=== PATIENT | male | born 2000 | race Caucasian/White ===

== ENCOUNTER 2019-01-14 01:17 | Emergency (ER) | payer OTHER, MEDICAID ==
[~2019-01-14] VITALS: Ht 190.5 cm; Wt 159.2 kg
[~2019-01-14 01:17] MED LIST: ABILIFY30 MG; DEPAKOTE PO; DEPAKOTE500 MG PO; INTUNIV4 MG PO; LATUDA80 MG PO; TOPAMAX PO; TOPAMAX200 MG; ZOLOFT PO
[2019-01-14] MEDS ORDERED: SYNTHROID100 MC1 (01:23)
[2019-01-14 01:47] LABS: ABSOLUTE BASOPHILS 0.1 thou/uL (0.0-0.2); ABSOLUTE EOSINOPHILS 0.8 thou/uL (0.0-0.7); ABSOLUTE LYMPHOCYTES 3.3 thou/uL (0.8-5.3); ABSOLUTE MONOCYTES 1.6 thou/uL (0.0-1.2); ABSOLUTE NEUTROPHILS 4.9 thou/uL (1.6-8.1); BASOPHILS 0.8 %; EOSINOPHILS 7.4 %; HEMATOCRIT 41.7 % (42.0-52.0); HEMOGLOBIN 14.2 gm/dL (14.0-18.0); LYMPHOCYTES 30.9 %; MCH 29.2 pg (26.0-34.0); MCHC 34.1 g/dL (28.0-37.0); MCV 85.8 fL (80.0-100.0); MONOCYTES 14.8 %; MPV 8.8 fl. (7.2-11.1); NUCLEATED RBCS 0 /100WBC; PLATELET COUNT* 160 thou/uL (150-400); POLYS 46.1 %; RBC 4.86 mil/uL (4.50-6.00); RDW-CV 13.8 % (10.5-14.5); WBC 10.5 thou/uL (4.0-11.0)
[2019-01-14 01:53] LABS: ANION GAP 15 mmol/L (7-16); BUN 6 mg/dL (7-18); CALCIUM 8.5 mg/dL (8.5-10.1); CHLORIDE 106 mmol/L (98-107); CO2 25 mmol/L (21-32); CREATININE 0.9 mg/dL (0.6-1.3); GLUCOSE 122 mg/dL (70-99); POTASSIUM 3.3 mmol/L (3.5-5.1); SODIUM 146 mmol/L (136-145)
[2019-01-14 01:57] LABS: PROTIME 10.1 Seconds (9.20-11.50)
[2019-01-14 02:04] LABS: ALBUMIN 3.4 g/dL (3.4-5.0); ALKALINE PHOSPHATASE 94 U/L (46-116); NT-PRO BRAIN NAT PEPTIDE 51 pg/mL (<300); SGOT 23 U/L (15-37); SGPT 44 U/L (30-65); TOTAL BILIRUBIN 0.3 mg/dL (<0.1-1.0); TOTAL PROTEIN 6.6 g/dL (6.4-8.2); TROPONIN-I LEVEL <0.06 ng/mL (<0.06)
[2019-01-14 03:08] LABS: SALICYLATE < 2.8 mg/dL (2.8-20.0)
[2019-01-14 03:09] LABS: ACETAMINOPHEN < 2 ug/mL (10-30); ALCOHOL < 10 mg/dL (<10)
[2019-01-14 04:45] LABS: AMP/METHAMP Negative (Negative); BARBITURATES Negative (Negative); BENZODIAZEPINES Negative (Negative); COCAINE Negative (Negative); METHADONE Negative (Negative); OPIATES Negative (Negative); PCP Negative (Negative); THC Negative (Negative)
--- NOTE | 2019-01-14 12:23 | EKG ---
[place] [address] ELECTROCARDIOGRAM REPORT Name: TRISH MENSAH Room: [facility]#: [id number] Admission: 01/14/19 Attend Phys: Discharge: Date of : [birth year] Report #: [id number] THIS REPORT FOR: //name// [facility] ED Test Date: 2019-01-14 Test Time: 01:20:01 Pat Name: TRISH MENSAH Department: Room: Gender: Vp Site: OR : 2000 Requested By: Emma Leo Order Number: [id number] MD: Doug Garland Measurements Intervals [place] Rate: 105 P: 69 MS: 150 QRS: 55 QRSD: 94 T: 35 QT: 341 QTc: 451 Interpretive Statements Sinus tachycardia Baseline wander in lead(s) III No previous ECG available for comparison Electronically Signed On 01-14-2019 12:23:31 CDT by Doug Galrand [email or web address] <ELECTRONICALLY SIGNED> By: Doug Garland MD, [facility] 01/14/19 1223 0120 0120 Doug Garland MD, FACC /EPI
[2019-01-14] MEDS ORDERED: SYNTHROID125 MC1 PO (13:50)
[2019-01-14] MEDS ORDERED: DEPAKOTE 250MG250 M1 PO (13:50)
[2019-01-14] MEDS ORDERED: MELATONIN3 MG PO (13:51)
[2019-01-14] MEDS ORDERED: MINIPRESS2 MG PO (13:52)
[2019-01-14] MEDS ORDERED: OMEPRAZOLE20 M2 PO (13:52)
[2019-01-14] MEDS ORDERED: RISPERDAL4 M1 PO (13:54)
[2019-01-14] MEDS ORDERED: RISPERDAL 3 MG T3 M1 PO (13:54)
[2019-01-14] MEDS ORDERED: VITAMIN D250000 UNIT PO (13:55)
[2019-01-14] MEDS ORDERED: TYLENOL325 MG PO (13:56)
[2019-01-14] MEDS ORDERED: BUSPIRONE HCL10 MG PO (13:56)
[2019-01-14] MEDS ORDERED: ASPERCREME76.5 GM TOP (13:57)
[2019-01-14] MEDS ORDERED: DOK100 MG PO (13:57)
[2019-01-14] MEDS ORDERED: EPIPEN0.3 MG/0.1 IM (13:58)
[2019-01-14] MEDS ORDERED: HEMMOREX-HC25 MG RECTAL (13:59)
[2019-01-14 23:44] VITALS: BP 112/66
== END 2019-01-14 23:30 ==
LOC: M.ERS 01:17
PROVIDERS: Emergency Medicine
DX: R06.00 Dyspnea, unspecified (principal); R06.02 Shortness of breath; R45.851 Suicidal ideations; Z91.013 Allergy to seafood

== ENCOUNTER 2019-01-29 02:40 | Emergency (ER) | payer OTHER, MEDICAID ==
[~2019-01-29] VITALS: Ht 190.5 cm; Wt 159.2 kg
[~2019-01-29 02:40] MED LIST changes: +ASPERCREME76.5 GM TOP; +BUSPIRONE HCL10 MG PO; +DEPAKOTE 250MG250 M1 PO; +DOK100 MG PO; +EPIPEN0.3 MG/0.1 IM; +HEMMOREX-HC25 MG RECTAL; +MELATONIN3 MG PO; +MINIPRESS2 MG PO; +OMEPRAZOLE20 M2 PO; +RISPERDAL 3 MG T3 M1 PO; +RISPERDAL4 M1 PO; +SYNTHROID100 MC1; +SYNTHROID125 MC1 PO; +TYLENOL325 MG PO; +VITAMIN D250000 UNIT PO
[2019-01-29 04:00] VITALS: BP 130/86
== END 2019-01-29 04:00 | disposition home or self-care (01) ==
LOC: M.ERS 02:40
DX: F23 Brief psychotic disorder (principal); F31.9 Bipolar disorder, unspecified; F84.5 Asperger's syndrome; Z59.0 Homelessness; Z91.013 Allergy to seafood

== ENCOUNTER 2019-01-31 02:45 | Emergency (ER) | payer OTHER, MEDICAID ==
[~2019-01-31] VITALS: Ht 190.5 cm; Wt 159.3 kg
[2019-01-31 03:31] LABS: URINE BILIRUBIN NEGATIVE (Negative); URINE BLOOD NEGATIVE (Negative); URINE CLARITY CLEAR; URINE COLOR YELLOW; URINE GLUCOSE-RANDOM NEGATIVE (Negative); URINE KETONES NEGATIVE (Negative); URINE LEUKOCYTES NEGATIVE (Negative); URINE NITRITE NEGATIVE (Negative); URINE PROTEIN NEGATIVE (Negative); URINE SPECIFIC GRAVITY 1.015 (1.005-1.030); URINE UROBILINOGEN 0.2 E.U./dl (0.2-1.0)
[2019-01-31 03:45] LABS: AMP/METHAMP Negative (Negative); BARBITURATES Negative (Negative); BENZODIAZEPINES Negative (Negative); COCAINE Negative (Negative); METHADONE Negative (Negative); OPIATES Negative (Negative); PCP Negative (Negative); THC Negative (Negative)
[2019-01-31 06:18] VITALS: BP 132/77
== END 2019-01-31 06:18 | disposition home or self-care (01) ==
LOC: M.ERS 02:45
PROVIDERS: Personal Emergency Response Attendant
DX: R44.0 Auditory hallucinations (principal); F31.9 Bipolar disorder, unspecified; F84.5 Asperger's syndrome; Z00.00 Encounter for general adult medical examination without abnormal findings; Z91.013 Allergy to seafood

== ENCOUNTER 2019-02-22 00:07 | Emergency (ER) | payer OTHER, MEDICAID ==
[~2019-02-22] VITALS: Ht 193 cm; Wt 136.1 kg
[2019-02-22 00:40] LABS: ABSOLUTE BASOPHILS 0.1 thou/uL (0.0-0.2); ABSOLUTE EOSINOPHILS 0.3 thou/uL (0.0-0.7); ABSOLUTE LYMPHOCYTES 3.4 thou/uL (0.8-5.3); ABSOLUTE MONOCYTES 1.4 thou/uL (0.0-1.2); ABSOLUTE NEUTROPHILS 3.8 thou/uL (1.6-8.1); BASOPHILS 1.3 %; EOSINOPHILS 3.4 %; HEMOGLOBIN 14.8 gm/dL (14.0-18.0); LYMPHOCYTES 37.8 %; MCH 29.5 pg (26.0-34.0); MCHC 34.5 g/dL (28.0-37.0); MCV 85.5 fL (80.0-100.0); MONOCYTES 15.5 %; NUCLEATED RBCS 0 /100WBC; PLATELET COUNT* 192 thou/uL (150-400); RBC 5.03 mil/uL (4.50-6.00); RDW-CV 14.6 % (10.5-14.5); WBC 8.9 thou/uL (4.0-11.0)
[2019-02-22 00:50] LABS: CALCIUM 9.1 mg/dL (8.5-10.1); CREATININE 0.9 mg/dL (0.6-1.3); POTASSIUM 3.8 mmol/L (3.5-5.1)
[2019-02-22 00:55] LABS: ALBUMIN 3.8 g/dL (3.4-5.0); TOTAL BILIRUBIN 0.4 mg/dL (<0.1-1.0); TOTAL PROTEIN 7.6 g/dL (6.4-8.2)
[2019-02-22 00:56] LABS: ALCOHOL < 10 mg/dL (<10); SALICYLATE < 2.8 mg/dL (2.8-20.0)
[2019-02-22 00:57] LABS: ACETAMINOPHEN < 2 ug/mL (10-30)
[2019-02-22 01:52] LABS: URINE BILIRUBIN NEGATIVE (Negative); URINE BLOOD NEGATIVE (Negative); URINE CLARITY CLEAR; URINE COLOR YELLOW; URINE GLUCOSE-RANDOM NEGATIVE (Negative); URINE KETONES NEGATIVE (Negative); URINE LEUKOCYTES-REFLEX NEGATIVE (Negative); URINE NITRITE-REFLEX NEGATIVE (Negative); URINE PROTEIN NEGATIVE (Negative); URINE SPECIFIC GRAVITY >= 1.030 (1.005-1.030); URINE UROBILINOGEN 0.2 E.U./dl (0.2-1.0)
[2019-02-22 02:01] LABS: AMP/METHAMP Negative (Negative); BARBITURATES Negative (Negative); BENZODIAZEPINES Negative (Negative); COCAINE Negative (Negative); METHADONE Negative (Negative); OPIATES Negative (Negative); PCP Negative (Negative); THC Negative (Negative)
[2019-02-22 15:13] VITALS: BP 125/87
== END 2019-02-22 15:13 | disposition still patient (30) ==
LOC: M.ERS 00:07
PROVIDERS: Emergency Medicine Emergency Medical Services
DX: R45.851 Suicidal ideations (principal); R44.3 Hallucinations, unspecified; F31.9 Bipolar disorder, unspecified; Z91.013 Allergy to seafood; Z79.899 Other long term (current) drug therapy

== ENCOUNTER 2019-03-08 21:45 | Emergency (ER) | payer OTHER, MEDICAID ==
[~2019-03-08] VITALS: Ht 193 cm; Wt 158.8 kg
[2019-03-08] MEDS ORDERED: ZYPREXA 5 MG TAB5 M1 PO (21:57)
[2019-03-08] MEDS ORDERED: VISTARIL 25 MG25 M1 PO (21:57)
[2019-03-08] MEDS ORDERED: PROTONIX40 M1 PO (21:58)
[2019-03-08 22:40] LABS: URINE BILIRUBIN NEGATIVE (Negative); URINE BLOOD TRACE (Negative); URINE CLARITY CLEAR; URINE COLOR YELLOW; URINE GLUCOSE-RANDOM NEGATIVE (Negative); URINE KETONES NEGATIVE (Negative); URINE LEUKOCYTES-REFLEX NEGATIVE (Negative); URINE NITRITE-REFLEX NEGATIVE (Negative); URINE PROTEIN NEGATIVE (Negative); URINE SPECIFIC GRAVITY >= 1.030 (1.005-1.030); URINE UROBILINOGEN 0.2 E.U./dl (0.2-1.0)
[2019-03-08 22:47] LABS: ABSOLUTE BASOPHILS 0.1 thou/uL (0.0-0.2); ABSOLUTE EOSINOPHILS 0.5 thou/uL (0.0-0.7); ABSOLUTE LYMPHOCYTES 3.2 thou/uL (0.8-5.3); ABSOLUTE MONOCYTES 1.4 thou/uL (0.0-1.2); ABSOLUTE NEUTROPHILS 3.8 thou/uL (1.6-8.1); BASOPHILS 0.8 %; EOSINOPHILS 5.5 %; HEMATOCRIT 41.8 % (42.0-52.0); HEMOGLOBIN 14.4 gm/dL (14.0-18.0); LYMPHOCYTES 35.2 %; MCH 29.7 pg (26.0-34.0); MCHC 34.4 g/dL (28.0-37.0); MCV 86.3 fL (80.0-100.0); MONOCYTES 15.9 %; MPV 8.4 fl. (7.2-11.1); NUCLEATED RBCS 0 /100WBC; PLATELET COUNT* 165 thou/uL (150-400); POLYS 42.6 %; RBC 4.84 mil/uL (4.50-6.00); RDW-CV 14.3 % (10.5-14.5)
[2019-03-08 22:48] LABS: AMP/METHAMP Negative (Negative); BARBITURATES Negative (Negative); BENZODIAZEPINES Negative (Negative); COCAINE Negative (Negative); METHADONE Negative (Negative); OPIATES Negative (Negative); PCP Negative (Negative); THC Negative (Negative)
[2019-03-08 22:52] LABS: CALCIUM 8.8 mg/dL (8.5-10.1); CREATININE 0.9 mg/dL (0.6-1.3); POTASSIUM 3.6 mmol/L (3.5-5.1)
[2019-03-08 22:56] LABS: ALBUMIN 3.6 g/dL (3.4-5.0); TOTAL BILIRUBIN 0.4 mg/dL (<0.1-1.0)
[2019-03-08] MEDS ORDERED: CIPROFLOXACIN500 M1 PO (23:23)
[2019-03-08 23:35] VITALS: BP 138/79
== END 2019-03-08 23:35 | disposition home or self-care (01) ==
LOC: M.ERS 21:45
PROVIDERS: Emergency Medicine
DX: R19.7 Diarrhea, unspecified (principal); R10.30 Lower abdominal pain, unspecified; F32.9 Major depressive disorder, single episode, unspecified; Z91.013 Allergy to seafood

== ENCOUNTER 2019-04-17 20:05 | Emergency (ER) | payer OTHER, MEDICAID ==
[~2019-04-17] VITALS: Ht 182.9 cm; Wt 166.3 kg
[~2019-04-17 20:05] MED LIST changes: +CIPROFLOXACIN500 M1 PO; -DEPAKOTE 250MG250 M1 PO; +PROTONIX40 M1 PO; +VISTARIL 25 MG25 M1 PO; +ZYPREXA 5 MG TAB5 M1 PO
[2019-04-17 20:22] LABS: ABSOLUTE BASOPHILS 0.1 thou/uL (0.0-0.2); ABSOLUTE EOSINOPHILS 0.6 thou/uL (0.0-0.7); ABSOLUTE LYMPHOCYTES 3.2 thou/uL (0.8-5.3); ABSOLUTE MONOCYTES 1.5 thou/uL (0.0-1.2); ABSOLUTE NEUTROPHILS 4.3 thou/uL (1.6-8.1); BASOPHILS 1.4 %; EOSINOPHILS 5.9 %; HEMATOCRIT 42.8 % (42.0-52.0); HEMOGLOBIN 14.7 gm/dL (14.0-18.0); LYMPHOCYTES 33.1 %; MCH 29.5 pg (26.0-34.0); MCHC 34.4 g/dL (28.0-37.0); MCV 85.7 fL (80.0-100.0); MONOCYTES 15.4 %; MPV 8.2 fl. (7.2-11.1); NUCLEATED RBCS 0 /100WBC; PLATELET COUNT* 176 thou/uL (150-400); POLYS 44.2 %; RBC 4.99 mil/uL (4.50-6.00); RDW-CV 13.9 % (10.5-14.5); WBC 9.7 thou/uL (4.0-11.0)
[2019-04-17 20:32] LABS: CALCIUM 8.9 mg/dL (8.5-10.1); POTASSIUM 3.8 mmol/L (3.5-5.1)
[2019-04-17 20:36] LABS: ALBUMIN 3.8 g/dL (3.4-5.0); TOTAL BILIRUBIN 0.5 mg/dL (<0.1-1.0); TOTAL PROTEIN 7.4 g/dL (6.4-8.2)
[2019-04-17 20:46] VITALS: BP 96/75
--- NOTE | 2019-04-19 16:52 | EKG ---
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
== END 2019-04-17 20:47 | disposition home or self-care (01) ==
LOC: M.ERS 20:05
PROVIDERS: Family Medicine
DX: R10.13 Epigastric pain (principal); F31.9 Bipolar disorder, unspecified; Z91.013 Allergy to seafood

== ENCOUNTER 2019-05-28 18:38 | Emergency (ER) | payer OTHER, MEDICAID ==
[~2019-05-28] VITALS: Ht 193 cm; Wt 137.4 kg
[2019-05-28 18:50] VITALS: BP 160/89
[2019-05-28] MEDS ORDERED: FAZACLO100 MG PO ×2 (18:59)
[2019-05-28] MEDS ORDERED: VITAMIN D35000 UNIT PO (19:01)
[2019-05-28] MEDS ORDERED: HALOPERIDOL 5 MG5 MG PO (19:01)
[2019-05-28] MEDS ORDERED: OLANZAPINE5 M1 PO (19:02)
== END 2019-05-28 19:23 | disposition home or self-care (01) ==
LOC: M.ERS 18:38
DX: F31.9 Bipolar disorder, unspecified (principal); Z76.0 Encounter for issue of repeat prescription; F25.9 Schizoaffective disorder, unspecified; Z91.013 Allergy to seafood; Z98.890 Other specified postprocedural states

== ENCOUNTER 2019-07-06 19:54 | Emergency (ER) | payer OTHER, MEDICAID ==
[~2019-07-06] VITALS: Ht 193 cm; Wt 136.1 kg
[~2019-07-06 19:54] MED LIST changes: +FAZACLO100 MG PO; +HALOPERIDOL 5 MG5 MG PO; +OLANZAPINE5 M1 PO; +VITAMIN D35000 UNIT PO
[2019-07-06 20:41] LABS: ABSOLUTE BASOPHILS 0.1 thou/uL (0.0-0.2); ABSOLUTE EOSINOPHILS 0.4 thou/uL (0.0-0.7); ABSOLUTE LYMPHOCYTES 3.1 thou/uL (0.8-5.3); ABSOLUTE MONOCYTES 1.5 thou/uL (0.0-1.2); ABSOLUTE NEUTROPHILS 3.2 thou/uL (1.6-8.1); BASOPHILS 1.1 %; EOSINOPHILS 4.9 %; HEMATOCRIT 41.3 % (42.0-52.0); HEMOGLOBIN 14.4 gm/dL (14.0-18.0); LYMPHOCYTES 37.4 %; MCH 29.6 pg (26.0-34.0); MCHC 34.8 g/dL (28.0-37.0); MCV 84.9 fL (80.0-100.0); MONOCYTES 17.8 %; MPV 8.4 fl. (7.2-11.1); NUCLEATED RBCS 0 /100WBC; PLATELET COUNT* 176 thou/uL (150-400); POLYS 38.8 %; RBC 4.86 mil/uL (4.50-6.00); RDW-CV 14.3 % (10.5-14.5); WBC 8.2 thou/uL (4.0-11.0)
[2019-07-06 20:45] LABS: CALCIUM 9.4 mg/dL (8.5-10.1); CREATININE 0.9 mg/dL (0.6-1.3); POTASSIUM 4.1 mmol/L (3.5-5.1)
[2019-07-06 20:50] LABS: ALBUMIN 3.6 g/dL (3.4-5.0); TOTAL BILIRUBIN 0.5 mg/dL (<0.1-1.0); TOTAL PROTEIN 7.1 g/dL (6.4-8.2)
[2019-07-06 20:57] LABS: SALICYLATE < 2.8 mg/dL (2.8-20.0)
[2019-07-06 20:58] LABS: ACETAMINOPHEN < 2 ug/mL (10-30)
[2019-07-06 20:59] LABS: ALCOHOL < 10 mg/dL (<10)
[2019-07-06 21:12] LABS: VALPROIC ACID (DEPAKENE) 87.1 mcg/mL (50-100)
[2019-07-06 21:28] LABS: URINE BILIRUBIN NEGATIVE (Negative); URINE BLOOD NEGATIVE (Negative); URINE CLARITY CLEAR; URINE COLOR YELLOW; URINE GLUCOSE-RANDOM NEGATIVE (Negative); URINE KETONES NEGATIVE (Negative); URINE LEUKOCYTES-REFLEX NEGATIVE (Negative); URINE NITRITE-REFLEX NEGATIVE (Negative); URINE PROTEIN NEGATIVE (Negative); URINE UROBILINOGEN 0.2 E.U./dl (0.2-1.0)
[2019-07-06 21:39] LABS: AMP/METHAMP Negative (Negative); BARBITURATES Negative (Negative); BENZODIAZEPINES Negative (Negative); COCAINE Negative (Negative); METHADONE Negative (Negative); OPIATES Negative (Negative); PCP Negative (Negative); THC Negative (Negative)
[2019-07-07 13:25] VITALS: BP 144/66
== END 2019-07-07 13:25 ==
LOC: M.ERS 19:54
PROVIDERS: Emergency Medicine
DX: R45.851 Suicidal ideations (principal); F20.9 Schizophrenia, unspecified; G47.00 Insomnia, unspecified; Z90.89 Acquired absence of other organs; F31.9 Bipolar disorder, unspecified; Z91.013 Allergy to seafood

== ENCOUNTER 2019-09-21 23:43 | Emergency (ER) | payer OTHER, MEDICAID ==
[~2019-09-21] VITALS: Ht 193 cm; Wt 127.0 kg
[2019-09-22 00:20] LABS: URINE BILIRUBIN NEGATIVE (Negative); URINE BLOOD NEGATIVE (Negative); URINE CLARITY CLEAR; URINE COLOR YELLOW; URINE GLUCOSE-RANDOM TRACE (Negative); URINE KETONES TRACE (Negative); URINE LEUKOCYTES-REFLEX NEGATIVE (Negative); URINE NITRITE-REFLEX NEGATIVE (Negative); URINE PROTEIN TRACE (Negative)
[2019-09-22 00:27] LABS: AMP/METHAMP Negative (Negative); BARBITURATES Negative (Negative); BENZODIAZEPINES Negative (Negative); COCAINE Negative (Negative); METHADONE Negative (Negative); OPIATES Negative (Negative); PCP Negative (Negative); THC Negative (Negative)
[2019-09-22 00:41] LABS: ABSOLUTE BASOPHILS 0.1 thou/uL (0.0-0.2); ABSOLUTE EOSINOPHILS 0.3 thou/uL (0.0-0.7); ABSOLUTE LYMPHOCYTES 2.9 thou/uL (0.8-5.3); ABSOLUTE MONOCYTES 1.1 thou/uL (0.0-1.2); ABSOLUTE NEUTROPHILS 2.9 thou/uL (1.6-8.1); BASOPHILS 0.7 %; EOSINOPHILS 3.8 %; HEMATOCRIT 40.6 % (42.0-52.0); HEMOGLOBIN 14.1 gm/dL (14.0-18.0); LYMPHOCYTES 40.1 %; MCH 29.7 pg (26.0-34.0); MCHC 34.7 g/dL (28.0-37.0); MCV 85.5 fL (80.0-100.0); MONOCYTES 15.4 %; MPV 8.4 fl. (7.2-11.1); NUCLEATED RBCS 0 /100WBC; PLATELET COUNT* 144 thou/uL (150-400); RBC 4.75 mil/uL (4.50-6.00); RDW-CV 14.5 % (10.5-14.5); WBC 7.2 thou/uL (4.0-11.0)
[2019-09-22 00:45] LABS: CALCIUM 8.8 mg/dL (8.5-10.1); CREATININE 0.9 mg/dL (0.6-1.3); POTASSIUM 3.5 mmol/L (3.5-5.1)
[2019-09-22 00:50] LABS: ALBUMIN 3.4 g/dL (3.4-5.0); TOTAL BILIRUBIN 0.5 mg/dL (<0.1-1.0); TOTAL PROTEIN 6.8 g/dL (6.4-8.2)
[2019-09-22 00:53] LABS: ALCOHOL < 10 mg/dL (<10); SALICYLATE < 2.8 mg/dL (2.8-20.0)
[2019-09-22 00:57] LABS: ACETAMINOPHEN < 2 ug/mL (10-30)
[2019-09-22 14:25] VITALS: BP 140/76
== END 2019-09-22 14:25 ==
LOC: M.ERS 23:43
PROVIDERS: Emergency Medicine
DX: F20.0 Paranoid schizophrenia (principal); F31.9 Bipolar disorder, unspecified; Z91.013 Allergy to seafood; Z79.899 Other long term (current) drug therapy

== ENCOUNTER 2019-10-10 20:55 | Emergency (ER) | payer OTHER, MEDICAID ==
[~2019-10-10] VITALS: Ht 193 cm; Wt 145.2 kg
[2019-10-10] MEDS ORDERED: IBU600 MG PO (21:28)
[2019-10-10] MEDS ORDERED: TESSALON PERLE100 M1 PO (21:37)
[2019-10-10 21:42] VITALS: BP 116/76
--- NOTE | 2019-10-12 10:22 | EKG ---
[place] [address] ELECTROCARDIOGRAM REPORT Name: TRISH MENSAH Room: [facility]#: [id number] Admission: 10/10/19 Attend Phys: Discharge: 10/10/19 Date of : [birth year] Date of Service: 10/10/19 2100 Report #: [id number] THIS REPORT FOR: //name// [facility] ED Test Date: 2019-10-10 Test Time: 21:00:54 Pat Name: TRISH MENSAH Department: Room: Gender: Contracts Attorney: : 2000 Requested By: Cal Walls Order Number: [id number] MD: Cameron Segura Measurements Intervals [place] Rate: 100 P: 63 SC: 148 QRS: 26 QRSD: 99 T: 47 QT: 346 QTc: 447 Interpretive Statements Sinus tachycardia Borderline T wave abnormalities Borderline ST elevation, anterior leads Compared to ECG 04/17/2019 20:10:13 no change Electronically Signed On 10-12-2019 10:21:05 CDT by Cameron Segura [email or web address] <ELECTRONICALLY SIGNED> By: Cameron Segura MD, FACC 10/12/19 1021 2100 2100 Cameron Segura MD, MERGED WITH [facility] /EPI
== END 2019-10-10 21:44 | disposition home or self-care (01) ==
LOC: M.ERS 20:55
DX: F41.9 Anxiety disorder, unspecified (principal); R07.89 Other chest pain; R05 Cough; F32.9 Major depressive disorder, single episode, unspecified; F20.9 Schizophrenia, unspecified; Z90.89 Acquired absence of other organs; E66.01 Morbid (severe) obesity due to excess calories; Z68.39 Body mass index [BMI] 39.0-39.9, adult; Z91.013 Allergy to seafood

== ENCOUNTER 2021-02-14 18:23 | Emergency (ER) | payer OTHER, MEDICAID ==
[~2021-02-14] VITALS: Ht 190.5 cm; Wt 132.0 kg
[~2021-02-14 18:23] MED LIST changes: +IBU600 MG PO; +TESSALON PERLE100 M1 PO
[2021-02-14] MEDS ORDERED: NAPROSYN500 M1 PO (18:35)
[2021-02-14] MEDS ORDERED: CENTANY30 GM TOP (18:35)
[2021-02-14] MEDS ORDERED: CLONAZEPAM 0.50.5 M1 PO (18:35)
[2021-02-14] MEDS ORDERED: ONDANSETRON ODT4 MG PO (18:35)
[2021-02-14] MEDS ORDERED: AUGMENTIN 500-1 EACH PO (20:04)
[2021-02-14 22:39] VITALS: BP 129/70
== END 2021-02-14 22:39 | disposition home or self-care (01) ==
LOC: M.ERS 18:23
DX: S81.852A Open bite, left lower leg, initial encounter (principal); E66.01 Morbid (severe) obesity due to excess calories; Z90.89 Acquired absence of other organs; Z79.899 Other long term (current) drug therapy; Z91.013 Allergy to seafood; Z68.36 Body mass index [BMI] 36.0-36.9, adult; W54.0XXA Bitten by dog, initial encounter; Y93.89 Activity, other specified; Y92.89 Other specified places as the place of occurrence of the external cause; Y99.8 Other external cause status